=== PATIENT | female | born 1940 | race Caucasian/White ===

== ENCOUNTER 2021-09-04 12:52 | Emergency (ER) | payer MEDICARE, BC ==
[2021-09-04 14:13] VITALS: RESP 18
[2021-09-04] MEDS ORDERED: DEXAMETHASONE SOD PHOSPHATE 10 MG/ML 1 ML VIAL IVP STA (14:45)
--- NOTE | 2021-09-04 15:33 | ED ---
URI HPI - General Source: patient, RN notes reviewed Mode of arrival: EMS <Trace Gaming - Last Filed: 09/04/21 15:31> <Mamie Allen - Last Filed: 09/07/21 23:02> - General Chief Complaint: Upper Respiratory Infection Stated Complaint: cough, runny nose,COVID + Time Seen by Provider: 09/04/21 14:10 - History of Present Illness Initial Comments: Patient is an 81-year-old female that presents to the emergency department complaining of upper respiratory tract symptoms in Covid-positive for the past all days. She notes that she did have Covid back in November was hospitalized for several weeks. She notes that she came back today to get monoclonal antibodies due to fear for reverting back to that same type episode. She denied any chest pain shortness of breath headache nausea vomiting diarrhea constipation fever fatigue chills. (Trace Gaming) - Related Data Allergies Allergy/AdvReac Type Severity Reaction Status Date / Time monosodium glutamate [MSG] AdvReac Swelling Verified 09/04/21 14:13 Review of Systems ROS Other: All systems not noted in ROS Statement are negative. <Trace Gaming - Last Filed: 09/04/21 15:31> ROS Other: All systems not noted in ROS Statement are negative. <Mamie Allen - Last Filed: 09/07/21 23:02> ROS Statement: Those systems with pertinent positive or pertinent negative responses have been documented in the HPI. Past Medical History Past Medical History: Atrial Fibrillation, Hypertension History of Any Multi-Drug Resistant Organisms: None Reported Past Surgical History: Hysterectomy, Orthopedic Surgery Additional Past Surgical History / Comment(s): bilateral total knee replacement Past Psychological History: No Psychological Hx Reported Smoking Status: Former smoker Past Alcohol Use History: None Reported Past Drug Use History: None Reported <Trace Gaming - Last Filed: 09/04/21 15:31> General Exam General appearance: alert, in no apparent distress Head exam: Present: atraumatic, normocephalic, normal inspection Eye exam: Present: normal appearance, PERRL, EOMI. Absent: scleral icterus, conjunctival injection, periorbital swelling ENT exam: Present: normal exam, mucous membranes moist Neck exam: Present: normal inspection Respiratory exam: Present: normal lung sounds bilaterally. Absent: respiratory distress, wheezes, rales, rhonchi, stridor Cardiovascular Exam: Present: regular rate, normal rhythm, normal heart sounds. Absent: systolic murmur, diastolic murmur, rubs, gallop, clicks Extremities exam: Present: normal inspection, full ROM, normal capillary refill. Absent: tenderness, pedal edema, joint swelling, calf tenderness Neurological exam: Present: alert, oriented X3 Psychiatric exam: Present: normal affect, normal mood Skin exam: Present: warm, dry, intact, normal color. Absent: rash <Trace Gaming - Last Filed: 09/04/21 15:31> Course Vital Signs 09/04/21 09/04/21 14:04 18:21 Temperature 98.6 F 97.6 F Pulse Rate 83 76 Respiratory 18 18 Rate Blood Pressure 156/82 156/69 O2 Sat by Pulse 95 Oximetry Medical Decision Making <Trace Gaming - Last Filed: 09/04/21 15:31> <Mamie Allen - Last Filed: 09/07/21 23:02> - Medical Decision Making 81-year-old female requesting monoclonal antibodies for Covid positive. Patient did not bring copy of positive test for recent swab was done. Covid test was positive. She does meet criteria given her age. Patient is agreeable with discharge home after transfusion. Case discussed with Dr. Allen. (Trace Gaming) I was available for consultation in the emergency department. The history and physical exam were done by the midlevel provider. I was consulted for this patients care. I reviewed the case with the midlevel provider and based on their presentation of the patient, I agree with the assessment, medical decision making and plan of care as documented. Chart was dictated using wiseri dictation software. Attempts were made to correct any dictation errors however some typographical errors may persist. Patient was seen during a national state of emergency due to the Covid-19 pandemic. (Mamie Allen) - Lab Data Lab Results 09/04/21 Range/Units 15:00 Coronavirus (PCR) Detected A (Not Detectd) Disposition Is patient prescribed a controlled substance at d/c from ED?: No Time of Disposition: 15:33 <Tarce Gaming - Last Filed: 09/04/21 15:31> <Mamie Allen - Last Filed: 09/07/21 23:02> Clinical Impression: COVID Disposition: HOME SELF-CARE Condition: Stable Instructions (If sedation given, give patient instructions): Coronavirus Disease 2019 (COVID-19) Additional Instructions: Please return to the Emergency Department if symptoms worsen or any other concerns. Follow-up with primary care 1-2 days. Take Tylenol and Motrin as needed for aches pains or fevers. Referrals: Parminder Ellis MD [Primary Care Provider] - 1-2 days
[2021-09-04] MEDS ORDERED: BAMLANIVIMAB (EUA) 700 MG, ETESEVIMAB (EUA) 1,400 MG in SODIUM CHLORIDE 0.9% 100 ML IVPB ONE (16:00)
[2021-09-04] MEDS ORDERED: SODIUM CHLORIDE 0.9% 50 ML IVPB ONE (16:00)
[2021-09-04 18:23] VITALS: BP 156/69; PULSE 76; TEMP 97.6
== END 2021-09-04 18:21 | disposition home or self-care (01) ==
LOC: EC 12:52
DX: U07.1 COVID-19 (principal); I10 Essential (primary) hypertension; I48.91 Unspecified atrial fibrillation; Z87.891 Personal history of nicotine dependence
CPT/HCPCS: 87635; 99283; 96374; J1100; J3490